=== PATIENT | male | born 1935 ===

== ENCOUNTER → 2019-03-14 | Outpatient (CLI) | payer MEDICARE, OTHER | LOC: LAB SHORT 19:54 → LAB 19:54 | DX: Z48.02 Encounter for removal of sutures (principal); C44.319 Basal cell carcinoma of skin of other parts of face; C44.629 Squamous cell carcinoma of skin of left upper limb, including shoulder; D04.22 Carcinoma in situ of skin of left ear and external auricular canal; D04.61 Carcinoma in situ of skin of right upper limb, including shoulder; L81.4 Other melanin hyperpigmentation; L82.1 Other seborrheic keratosis; L57.0 Actinic keratosis; L08.9 Local infection of the skin and subcutaneous tissue, unspecified | CPT/HCPCS: 87070; 87077; 87186; 87205 ==